=== PATIENT | male | born 1940 | race Two or more races ===

== ENCOUNTER → 2017-06-30 | Outpatient (CLI) | payer OTHER ==
[~2017-06-30] MED LIST: ALENDRONATE SOD70 MG; CRESTOR10 MG; LOSARTAN POTAS100 MG; TRAMADOL HCL50 MG PO; WARFARIN SODIUM10 MG
== END | disposition home or self-care (01) ==
LOC: WOUND MED 10:13
DX: L97.812 Non-pressure chronic ulcer of other part of right lower leg with fat layer exposed (principal)
CPT/HCPCS: 11042; A4554; A4930; A6216; A6266

== ENCOUNTER → 2017-07-07 | Outpatient (CLI) | payer OTHER | END | disposition home or self-care (01) | LOC: EDSTATUS 09:36 → WOUND MED 10:44 | DX: L97.812 Non-pressure chronic ulcer of other part of right lower leg with fat layer exposed (principal) | CPT/HCPCS: 11042; A4554; A4930; A6216; A6219; A6266 ==

== ENCOUNTER → 2017-07-14 | Outpatient (CLI) | payer OTHER | END | disposition home or self-care (01) | LOC: WOUND MED 09:53 | DX: L97.812 Non-pressure chronic ulcer of other part of right lower leg with fat layer exposed (principal) | CPT/HCPCS: 11042; A4554; A4930; A6212; A6216; A6219; A6266 ==

== ENCOUNTER → 2017-09-15 | Outpatient (CLI) | payer OTHER | END | disposition home or self-care (01) | LOC: EDSTATUS 07:05 → WOUND MED 10:00 | DX: L97.112 Non-pressure chronic ulcer of right thigh with fat layer exposed (principal) | CPT/HCPCS: 11042; G0463; A4554; A4930; A6216 ==

== ENCOUNTER → 2017-09-22 | Outpatient (CLI) | payer OTHER | END | disposition home or self-care (01) | LOC: WOUND MED 10:13 | DX: L97.112 Non-pressure chronic ulcer of right thigh with fat layer exposed (principal) | CPT/HCPCS: 11042; A4554; A4930; A6216; A6219 ==

== ENCOUNTER → 2017-09-29 | Outpatient (CLI) | payer OTHER | END | disposition home or self-care (01) | LOC: WOUND MED 10:40 | DX: L97.112 Non-pressure chronic ulcer of right thigh with fat layer exposed (principal) | CPT/HCPCS: A4554; A4930; A6216; G0463 ==

== ENCOUNTER 2017-10-14 09:51 | Outpatient (CLI) | payer OTHER ==
[~2017-10-14] VITALS: Ht 172.7 cm; Wt 90.7 kg
== END 2017-10-14 10:10 | disposition home or self-care (01) ==
LOC: OFIC 805 09:51
DX: H93.13 Tinnitus, bilateral (principal); H90.3 Sensorineural hearing loss, bilateral; H61.23 Impacted cerumen, bilateral

== ENCOUNTER → 2018-06-09 | Outpatient (CLI) | payer OTHER | END | disposition home or self-care (01) | LOC: WOUND MED 11:07 | DX: L97.812 Non-pressure chronic ulcer of other part of right lower leg with fat layer exposed (principal); I87.2 Venous insufficiency (chronic) (peripheral); I82.4Z1 Acute embolism and thrombosis of unspecified deep veins of right distal lower extremity | CPT/HCPCS: G0463; A4554; A4930; A6216; A6266 ==

== ENCOUNTER → 2018-06-16 | Outpatient (CLI) | payer OTHER | END | disposition home or self-care (01) | LOC: WOUND MED 10:19 | DX: L97.812 Non-pressure chronic ulcer of other part of right lower leg with fat layer exposed (principal); I87.2 Venous insufficiency (chronic) (peripheral) | CPT/HCPCS: A4554; A4930; A6216; A6219; G0463 ==

== ENCOUNTER → 2018-07-14 | Outpatient (CLI) | payer OTHER | END | disposition home or self-care (01) | LOC: WOUND MED 10:54 | DX: L97.812 Non-pressure chronic ulcer of other part of right lower leg with fat layer exposed (principal); I87.2 Venous insufficiency (chronic) (peripheral) | CPT/HCPCS: G0463; A4554; A4930; A6216; A6219 ==

== ENCOUNTER → 2019-08-25 | Outpatient (CLI) | payer OTHER | END | disposition home or self-care (01) | LOC: MAMO-SONO 10:01 | DX: N62 Hypertrophy of breast (principal) ==

== ENCOUNTER 2020-05-16 10:49 | Outpatient (CLI) | payer OTHER | END 2020-05-16 12:00 | disposition home or self-care (01) | LOC: WOUND MED 10:49 | PROVIDERS: ATTEND Surgery | DX: L97.812 Non-pressure chronic ulcer of other part of right lower leg with fat layer exposed (principal); I87.2 Venous insufficiency (chronic) (peripheral); R60.0 Localized edema | CPT/HCPCS: G0463; A4554; A4930; A6216; A6219; A6220; A6266 ==

== ENCOUNTER 2020-05-23 07:48 | Outpatient (CLI) | payer OTHER | END 2020-05-23 09:00 | disposition home or self-care (01) | LOC: WOUND MED 07:48 | PROVIDERS: ATTEND Surgery | DX: L97.812 Non-pressure chronic ulcer of other part of right lower leg with fat layer exposed (principal); I87.2 Venous insufficiency (chronic) (peripheral); R60.0 Localized edema | CPT/HCPCS: G0463; A4554; A4930; A6216; A6266 ==

== ENCOUNTER 2020-05-30 08:24 | Outpatient (CLI) | payer OTHER | END 2020-05-30 09:22 | disposition home or self-care (01) | LOC: WOUND MED 08:24 | PROVIDERS: ATTEND Surgery | DX: L97.812 Non-pressure chronic ulcer of other part of right lower leg with fat layer exposed (principal); I87.2 Venous insufficiency (chronic) (peripheral); R60.0 Localized edema | CPT/HCPCS: G0463; A4554; A4930; A6216; A6219 ==

== ENCOUNTER 2020-06-06 07:53 | Outpatient (CLI) | payer OTHER | END 2020-06-06 14:41 | disposition home or self-care (01) | LOC: WOUND MED 07:53 | PROVIDERS: ATTEND Surgery | DX: L97.812 Non-pressure chronic ulcer of other part of right lower leg with fat layer exposed (principal); I87.2 Venous insufficiency (chronic) (peripheral); R60.0 Localized edema | CPT/HCPCS: G0463; A4554; A4930; A6021; A6216; A6219 ==

== ENCOUNTER 2020-06-13 07:49 | Outpatient (CLI) | payer OTHER | END 2020-06-13 09:00 | disposition home or self-care (01) | LOC: WOUND MED 07:49 | PROVIDERS: ATTEND Surgery | DX: L97.812 Non-pressure chronic ulcer of other part of right lower leg with fat layer exposed (principal); I87.2 Venous insufficiency (chronic) (peripheral); R60.0 Localized edema | CPT/HCPCS: G0463; A4554; A4930; A6216; A6219 ==

== ENCOUNTER 2020-06-20 07:49 | Outpatient (CLI) | payer OTHER | END 2020-06-20 09:00 | disposition home or self-care (01) | LOC: WOUND MED 07:49 | PROVIDERS: ATTEND Surgery | DX: L97.812 Non-pressure chronic ulcer of other part of right lower leg with fat layer exposed (principal); I87.2 Venous insufficiency (chronic) (peripheral); R60.0 Localized edema | CPT/HCPCS: G0463; A4554; A4930; A6216; A6220 ==

== ENCOUNTER 2020-06-27 08:02 | Outpatient (CLI) | payer OTHER | END 2020-06-27 09:00 | disposition home or self-care (01) | LOC: WOUND MED 08:02 | PROVIDERS: ATTEND Surgery | DX: L97.812 Non-pressure chronic ulcer of other part of right lower leg with fat layer exposed (principal); I87.2 Venous insufficiency (chronic) (peripheral); R60.0 Localized edema | CPT/HCPCS: G0463; A4554; A4930; A6021; A6216 ==

== ENCOUNTER 2020-07-04 10:58 | Outpatient (CLI) | payer OTHER | END 2020-07-04 12:00 | disposition home or self-care (01) | LOC: WOUND MED 10:58 | PROVIDERS: ATTEND Surgery | DX: L97.512 Non-pressure chronic ulcer of other part of right foot with fat layer exposed (principal); I87.2 Venous insufficiency (chronic) (peripheral); R60.0 Localized edema | CPT/HCPCS: 97597; A4554; A4930; A6216; A6219 ==

== ENCOUNTER 2020-07-11 06:53 | Outpatient (CLI) | payer OTHER | END 2020-07-11 09:00 | disposition home or self-care (01) | LOC: WOUND MED 06:53 | PROVIDERS: ATTEND Surgery | DX: L97.812 Non-pressure chronic ulcer of other part of right lower leg with fat layer exposed (principal); I87.2 Venous insufficiency (chronic) (peripheral); R60.0 Localized edema | CPT/HCPCS: G0463; A4554; A4930; A6216; A6219 ==

== ENCOUNTER 2020-07-18 08:01 | Outpatient (CLI) | payer OTHER | END 2020-07-18 09:00 | disposition home or self-care (01) | LOC: WOUND MED 08:01 | PROVIDERS: ATTEND Surgery | DX: L97.812 Non-pressure chronic ulcer of other part of right lower leg with fat layer exposed (principal); I87.2 Venous insufficiency (chronic) (peripheral); R60.0 Localized edema | CPT/HCPCS: G0463; A4554; A4930; A6216; A6266 ==

== ENCOUNTER 2020-07-25 07:45 | Outpatient (CLI) | payer OTHER | END 2020-07-25 09:00 | disposition home or self-care (01) | LOC: WOUND CARE 07:45 | PROVIDERS: ATTEND Surgery | DX: L97.812 Non-pressure chronic ulcer of other part of right lower leg with fat layer exposed (principal); I87.2 Venous insufficiency (chronic) (peripheral); R60.0 Localized edema | CPT/HCPCS: 29580; G0463; A4554; A4930; A6216; A6266 ==

== ENCOUNTER 2020-08-08 10:42 | Outpatient (CLI) | payer OTHER | END 2020-08-08 12:33 | disposition home or self-care (01) | LOC: WOUND MED 10:42 | PROVIDERS: ATTEND Surgery | DX: I83.213 Varicose veins of right lower extremity with both ulcer of ankle and inflammation (principal); L97.312 Non-pressure chronic ulcer of right ankle with fat layer exposed; I87.2 Venous insufficiency (chronic) (peripheral) | CPT/HCPCS: 29581; G0463; A4554; A4649; A4930; A6216 ==

== ENCOUNTER 2020-08-15 10:51 | Outpatient (CLI) | payer OTHER | END 2020-08-15 12:00 | disposition home or self-care (01) | LOC: WOUND MED 10:51 | PROVIDERS: ATTEND Surgery | DX: L97.312 Non-pressure chronic ulcer of right ankle with fat layer exposed (principal); I87.2 Venous insufficiency (chronic) (peripheral); R60.0 Localized edema | CPT/HCPCS: 29581; 97602; A4554; A4649; A4930; A6216 ==

== ENCOUNTER 2020-08-22 10:13 | Outpatient (CLI) | payer OTHER | END 2020-08-22 11:00 | disposition home or self-care (01) | LOC: WOUND MED 10:13 | PROVIDERS: ATTEND Surgery | DX: L97.312 Non-pressure chronic ulcer of right ankle with fat layer exposed (principal); I87.2 Venous insufficiency (chronic) (peripheral); R60.0 Localized edema | CPT/HCPCS: 29581; G0463; A4554; A4649; A4930; A6216 ==

== ENCOUNTER 2020-08-29 10:23 | Outpatient (CLI) | payer OTHER | END 2020-08-29 11:10 | disposition home or self-care (01) | LOC: WOUND MED 10:23 | PROVIDERS: ATTEND Surgery | DX: I83.213 Varicose veins of right lower extremity with both ulcer of ankle and inflammation (principal); L97.312 Non-pressure chronic ulcer of right ankle with fat layer exposed; R60.0 Localized edema | CPT/HCPCS: 29581; G0463; A4554; A4649; A4930; A6216 ==

== ENCOUNTER 2020-09-05 10:46 | Outpatient (CLI) | payer OTHER | END 2020-09-05 11:00 | disposition home or self-care (01) | LOC: WOUND MED 10:46 | PROVIDERS: ATTEND Surgery | DX: I83.213 Varicose veins of right lower extremity with both ulcer of ankle and inflammation (principal); L97.312 Non-pressure chronic ulcer of right ankle with fat layer exposed; R60.0 Localized edema | CPT/HCPCS: G0463; A4554; A4930; A6216; A6219 ==

== ENCOUNTER 2020-09-12 10:03 | Outpatient (CLI) | payer OTHER | END 2020-09-12 11:00 | disposition home or self-care (01) | LOC: WOUND MED 10:03 | PROVIDERS: ATTEND Surgery | DX: I83.213 Varicose veins of right lower extremity with both ulcer of ankle and inflammation (principal); L97.312 Non-pressure chronic ulcer of right ankle with fat layer exposed; R60.0 Localized edema | CPT/HCPCS: G0463; A4554; A4930; A6216 ==

== ENCOUNTER 2021-06-05 08:05 | Outpatient (CLI) | payer OTHER | END 2021-06-06 13:29 | disposition home or self-care (01) | LOC: WOUND MED 08:05 | PROVIDERS: ATTEND Surgery | DX: I83.218 Varicose veins of right lower extremity with both ulcer of other part of lower extremity and inflammation (principal); L97.811 Non-pressure chronic ulcer of other part of right lower leg limited to breakdown of skin | CPT/HCPCS: G0463; A4554; A4930; A6216; A6219 ==

== ENCOUNTER 2021-06-12 09:12 | Outpatient (CLI) | payer OTHER | END 2021-06-12 10:00 | disposition home or self-care (01) | LOC: WOUND MED 09:12 | PROVIDERS: ATTEND Surgery | DX: I83.218 Varicose veins of right lower extremity with both ulcer of other part of lower extremity and inflammation (principal); L97.811 Non-pressure chronic ulcer of other part of right lower leg limited to breakdown of skin | CPT/HCPCS: G0463; A4554; A4930; A6216; A6219 ==

== ENCOUNTER 2021-06-19 10:01 | Outpatient (CLI) | payer OTHER | END 2021-06-19 12:00 | disposition home or self-care (01) | LOC: WOUND MED 10:01 | PROVIDERS: ATTEND Surgery | DX: I83.218 Varicose veins of right lower extremity with both ulcer of other part of lower extremity and inflammation (principal); L97.811 Non-pressure chronic ulcer of other part of right lower leg limited to breakdown of skin | CPT/HCPCS: G0463; A4554; A4930; A6216; A6219 ==

== ENCOUNTER 2021-06-26 11:20 | Outpatient (CLI) | payer OTHER | END 2021-06-26 13:37 | disposition home or self-care (01) | LOC: WOUND MED 11:20 | PROVIDERS: ATTEND Surgery | DX: I83.218 Varicose veins of right lower extremity with both ulcer of other part of lower extremity and inflammation (principal); L97.811 Non-pressure chronic ulcer of other part of right lower leg limited to breakdown of skin; R60.0 Localized edema | CPT/HCPCS: G0463; A4554; A4930; A6216 ==

== ENCOUNTER 2021-12-02 10:05 | Emergency (ER) | payer OTHER ==
[~2021-12-02] VITALS: Ht 172.7 cm; Wt 81.6 kg
== END 2021-12-02 15:35 | disposition home or self-care (01) ==
LOC: ER 10:05
DX: R07.89 Other chest pain (principal); I11.9 Hypertensive heart disease without heart failure; E78.00 Pure hypercholesterolemia, unspecified; Z88.6 Allergy status to analgesic agent; Z88.0 Allergy status to penicillin

== ENCOUNTER 2022-07-14 14:24 | Outpatient (CLI) | payer OTHER | END 2022-07-14 14:25 | disposition home or self-care (01) | LOC: WOUND MED 14:24 → WOUND CARE 14:24 → WOUND MED 14:25 | PROVIDERS: ATTEND Surgery | DX: L97.912 Non-pressure chronic ulcer of unspecified part of right lower leg with fat layer exposed (principal) ==

== ENCOUNTER 2022-07-16 10:22 | Outpatient (CLI) | payer OTHER | END 2022-07-16 10:25 | disposition home or self-care (01) | LOC: WOUND MED 10:22 | PROVIDERS: ATTEND Surgery | DX: I87.2 Venous insufficiency (chronic) (peripheral) (principal); I80.9 Phlebitis and thrombophlebitis of unspecified site; L97.912 Non-pressure chronic ulcer of unspecified part of right lower leg with fat layer exposed ==

== ENCOUNTER 2022-07-23 10:57 | Outpatient (CLI) | payer OTHER | END 2022-07-23 10:58 | disposition home or self-care (01) | LOC: WOUND MED 10:57 | PROVIDERS: ATTEND Surgery | DX: I87.2 Venous insufficiency (chronic) (peripheral) (principal); I80.9 Phlebitis and thrombophlebitis of unspecified site; L97.312 Non-pressure chronic ulcer of right ankle with fat layer exposed ==

== ENCOUNTER 2022-07-30 11:09 | Outpatient (CLI) | payer OTHER | END 2022-07-30 12:00 | disposition home or self-care (01) | LOC: WOUND MED 11:09 | PROVIDERS: ATTEND Surgery | DX: I80.9 Phlebitis and thrombophlebitis of unspecified site (principal); L97.319 Non-pressure chronic ulcer of right ankle with unspecified severity | CPT/HCPCS: A4927; A6223; G0463 ==

== ENCOUNTER 2023-10-28 15:59 | Outpatient (CLI) | payer OTHER | END 2023-10-28 16:02 | disposition home or self-care (01) | LOC: RAD 15:59 | PROVIDERS: ATTEND Internal Medicine Rheumatology | DX: M17.11 Unilateral primary osteoarthritis, right knee (principal); M17.12 Unilateral primary osteoarthritis, left knee ==

== ENCOUNTER 2024-05-09 11:19 | Emergency (ER) | payer OTHER ==
[~2024-05-09] VITALS: Ht 172.7 cm; Wt 87.5 kg
[2024-05-09] MEDS ORDERED: ELIQUIS2.5 MG PO (11:39)
[2024-05-09] MEDS ORDERED: TOPROL XL25 M1 PO (11:40)
[2024-05-09] MEDS ORDERED: MEPERIDINE HCL/PF 25 MG/ML VIAL IV ONE (11:45)
[2024-05-09] MEDS ORDERED: ORPHENADRINE CITRATE 30 MG/ML AMPUL IM ONE (11:45)
== END 2024-05-09 16:02 | disposition home or self-care (01) ==
LOC: ER 11:19
DX: M54.50 Low back pain, unspecified (principal); I10 Essential (primary) hypertension; Z88.6 Allergy status to analgesic agent; Z88.0 Allergy status to penicillin
CPT/HCPCS: 72131; 96365; 96372; 99284; J2360; J3490

== ENCOUNTER 2024-08-17 10:08 | Outpatient (CLI) | payer OTHER ==
[~2024-08-17 10:08] MED LIST changes: +ELIQUIS2.5 MG PO; +TOPROL XL25 M1 PO
== END 2024-08-17 11:00 | disposition home or self-care (01) ==
LOC: WOUND MED 10:08
PROVIDERS: ATTEND Surgery
DX: I83.019 Varicose veins of right lower extremity with ulcer of unspecified site (principal); L97.919 Non-pressure chronic ulcer of unspecified part of right lower leg with unspecified severity
CPT/HCPCS: 97602; A4927; A6219; A6223

== ENCOUNTER 2024-08-24 11:21 | Outpatient (CLI) | payer OTHER | END 2024-08-24 12:30 | disposition home or self-care (01) | LOC: WOUND MED 11:21 | PROVIDERS: ATTEND Surgery | DX: L97.819 Non-pressure chronic ulcer of other part of right lower leg with unspecified severity (principal) | CPT/HCPCS: 97602; A4927; A6021; A6219; A6223 ==

== ENCOUNTER 2024-08-31 09:51 | Outpatient (CLI) | payer OTHER | END 2024-08-31 10:30 | disposition home or self-care (01) | LOC: WOUND MED 09:51 | PROVIDERS: ATTEND Surgery | DX: L97.912 Non-pressure chronic ulcer of unspecified part of right lower leg with fat layer exposed (principal) | CPT/HCPCS: 97597; A4927; A6219; A6223; A6251 ==

== ENCOUNTER → 2025-07-25 | Emergency (ER) | payer OTHER ==
[~2025-07-25] VITALS: Ht 172.7 cm; Wt 86.2 kg
[2025-07-25 12:11] LABS: BASO % 0.3 % (0.1-1.2); EOS # 0.02 (0.04-0.54); EOS % 0.3 % (0.7-7.0); LYMPH # 0.57 (1.18-3.74); LYMPH % 8.1 % (19.3-53.1); MEAN PLATELET VOLUME 12.20 fl (9.4-12.4); MONO # 0.50 (0.24-0.82); MONO % 7.1 % (4.7-12.5); NEUT # 5.88 (1.56-6.13); NEUT % 83.9 % (34.0-71.1); RED CELL DISTRIBUTION WIDTH 13.3 % (11.6-14.4)
[2025-07-25 12:32] LABS: BUN CREA RATIO 22.0 (7.0-25.0); CREATININE SERUM 1.31 mg/dL (0.70-1.30); GFR 52.0; GLUCOSE FASTING 115.0 mg/dL (65-100); INR 1.09; OSMOLALITY SERUM 294.0 MOSM/KG (275-295)
== END | disposition home or self-care (01) ==
LOC: ER 10:28
PROVIDERS: General Practice
DX: F41.0 Panic disorder [episodic paroxysmal anxiety] (principal); F41.8 Other specified anxiety disorders; I10 Essential (primary) hypertension; Z88.0 Allergy status to penicillin; Z88.6 Allergy status to analgesic agent